=== PATIENT | male | born 1975 | race Caucasian/White ===

== ENCOUNTER 2017-11-20 16:23 | Emergency (ER) | payer MEDICARE, OTHER ==
[~2017-11-20] VITALS: Ht 185.4 cm; Wt 77.0 kg
[~2017-11-20 16:23] MED LIST: IBUP800 PO; PROZ20CA11 PO; ZIPR20 PO
[2017-11-20 16:31] VITALS: BP 132/94; PULSE 120; RESP 17; TEMP 98.3; O2SAT 100
[2017-11-20 20:47] LABS: AUTOMATED NEUTROPHIL # 2.4 TH/MM3 (1.8-7.7); BASOPHIL % 0.5 % (0.0-2.0); EOSINOPHIL % 0.6 % (0.0-4.0); HEMATOCRIT 41.4 % (39.0-51.0); HEMOGLOBIN 14.5 GM/DL (13.0-17.0); LYMPH % 23.8 % (9.0-44.0); LYMPHOCYTE # 0.9 TH/MM3 (1.0-4.8); MEAN CELL VOLUME 85.5 FL (80.0-100.0); MEAN CORPUSCULAR HGB CONC 35.1 % (32.0-36.0); MEAN PLATELET VOLUME 8.5 FL (7.0-11.0); MONO % 9.8 % (0.0-8.0); MONOCYTE # 0.4 TH/MM3 (0-0.9); NEUT % 65.3 % (16.0-70.0); PLATELET COUNT 193 TH/MM3 (150-450); RED BLOOD COUNT 4.84 MIL/MM3 (4.50-5.90); RED CELL DISTRIBUTION WIDTH 14.2 % (11.6-17.2); WHITE BLOOD COUNT 3.7 TH/MM3 (4.0-11.0)
[2017-11-20 20:49] LABS: AMORPHOUS SEDIMENT, URINE RARE; BILIRUBIN, URINE NEG (NEG); BLOOD, URINE NEG (NEG); GLUCOSE,URINE NEG (NEG); HYALINE CAST, URINE 25 /lpf (RARE); KETONE, URINE 150 mg/dL (NEG); MUCUS URINE FEW /lpf (OCC); NITRITE,URINE NEG (NEG); SQUAMOUS EPITHELIAL CELL URINE <1 /hpf (0-5); URINE COLOR YELLOW (YELLW/STRAW); URINE LEUKOCYTE ESTERASE NEG (NEG)
[2017-11-20] MEDS ORDERED: ZYPR20TA PO (21:00)
[2017-11-20] MEDS ORDERED: PROZ20CA11 PO (21:00)
[2017-11-20] MEDS ORDERED: SODIUM CHLOR 0.9% 1000 ML INJ 1,000 ML IV ONE (21:00)
[2017-11-20 21:02] LABS: ALBUMIN 3.6 GM/DL (3.4-5.0); BICARBONATE 17.3 MEQ/L (21.0-32.0); BLOOD UREA NITROGEN 5 MG/DL (7-18); CALCIUM 8.5 MG/DL (8.5-10.1); CHLORIDE 102 MEQ/L (98-107); CREATININE 1.32 MG/DL (0.60-1.30); GLOMERULAR FILTRATION RATE 59 ML/MIN (>89); GLUCOSE,RANDOM 71 MG/DL (74-106); MAGNESIUM 1.8 MG/DL (1.5-2.5); SODIUM (NA) 136 MEQ/L (136-145)
[2017-11-20 21:03] LABS: ACETAMINOPHEN LESS THAN 2.0 MCG/ML (10.0-30.0); ALT (GPT) 19 U/L (12-78); AST (GOT) 20 U/L (15-37)
[2017-11-20 21:06] LABS: ALKALINE PHOSPHATASE 85 U/L (45-117); TOTAL BILIRUBIN ADULT 0.6 MG/DL (0.2-1.0); TOTAL PROTEIN 7.1 GM/DL (6.4-8.2)
--- NOTE | 2017-11-20 21:37 | PD ---
HPI Chief Complaint: Medical Clearance Time Seen by Provider: 20:48 Travel History International Travel<30 days: No Contact w/Intl Traveler<30days: No Traveled to known affect area: No History of Present Illness HPI 42-year-old male patient with history of schizophrenia, [facility], apparently has been on a hunger strike for 3 weeks, not eating, suicidal, states he wants to kill himself. He states that he gets dizzy and has palpitations sometimes, but denies any other issues. He has been [facility] acted, brought in for medical evaluation. Modifying Factors: None Associated Signs & Symptoms: Hunger strike for 3 weeks, not eating and drinking , dizziness and palpitations Risk Factors: Schizophrenic PFSH Past Medical History Schizophrenia: Yes (paranoid) Past Surgical History Oral Surgery: Yes (wisdom teeth) Social History Alcohol Use: No Tobacco Use: No Substance Use: Yes (occasional marijuana) Allergies-Medications (Allergen,Severity, Reaction): Coded Allergies: No Known Allergies (Unverified , 04/02/16) Reported Meds & Prescriptions Reported Meds & Active Scripts Active Reported Prozac (Fluoxetine HCl) 20 Mg Cap 20 Mg PO DAILY Zyprexa (Olanzapine) 20 Mg Tab 20 Mg PO DAILY Review of Systems Except as stated in HPI: all other systems reviewed are Neg Physical Exam Narrative GENERAL: Well-developed middle-age male patient currently in mild distress. Awake and oriented 3. SKIN: Focused skin assessment warm/dry. HEAD: Atraumatic. Normocephalic. EYES: Pupils equal and round. No scleral icterus. No injection or drainage. ENT: No nasal bleeding or discharge. Mucous membranes pink and moist. NECK: Trachea midline. No JVD. CARDIOVASCULAR: Regular rate and rhythm. No murmur appreciated. RESPIRATORY: No accessory muscle use. Clear to auscultation. Breath sounds equal bilaterally. GASTROINTESTINAL: Abdomen soft, non-tender, nondistended. Hepatic and splenic margins not palpable. MUSCULOSKELETAL: No obvious deformities. No clubbing. No cyanosis. No edema. NEUROLOGICAL: Awake and alert. No obvious cranial nerve deficits. Motor grossly within normal limits. Normal speech. PSYCHIATRIC: Appropriate mood and flat affect; insight and judgment poor. Data Data Last Documented VS Vital Signs Date Time Temp Pulse Resp B/P (MAP) Pulse Ox O2 Delivery O2 Flow Rate FiO2 11/20/17 16:31 98.3 120 17 132/94 (107) 100 Orders Orders Electrocardiogram (11/20/17 19:20) Complete Blood Count With Diff (11/20/17 19:20) Comprehensive Metabolic Panel (11/20/17 19:20) Lipase (11/20/17 19:20) Urinalysis - C+S If Indicated (11/20/17 19:20) Magnesium (Mg) (11/20/17 19:20) Drug Screen, Random Urine (11/20/17 19:20) Alcohol (Ethanol) (11/20/17 19:20) Salicylates (Aspirin) (11/20/17 19:20) Tylenol (Acetaminophen) (11/20/17 19:20) Sodium Chlor 0.9% 1000 Ml Inj (Ns 1000 M (11/20/17 21:00) Thyroid Stimulating Hormone (11/20/17 20:54) Psych Screen (11/20/17 20:54) Labs Laboratory Tests Test 11/20/17 20:00 11/20/17 20:30 Urine Color YELLOW Urine Turbidity HAZY Urine pH 6.0 Urine Specific [place] 1.020 Urine Protein 30 mg/dL Urine Glucose (UA) NEG mg/dL Urine Ketones 150 mg/dL Urine Occult Blood NEG Urine Nitrite NEG Urine Bilirubin NEG Urine Urobilinogen 2.0 MG/DL Urine Leukocyte Esterase NEG Urine RBC 1 /hpf Urine WBC 1 /hpf Urine Squamous Epithelial Cells <1 /hpf Urine Amorphous Sediment RARE Urine Hyaline Casts 25 /lpf Urine Mucus FEW /lpf Microscopic Urinalysis Comment CULT NOT INDICATED Urine Opiates Screen NEG Urine Barbiturates Screen NEG Urine Amphetamines Screen NEG Urine Benzodiazepines Screen NEG Urine Cocaine Screen NEG Urine Cannabinoids Screen NEG White Blood Count 3.7 TH/MM3 Red Blood Count 4.84 MIL/MM3 Hemoglobin 14.5 GM/DL Hematocrit 41.4 % Mean Corpuscular Volume 85.5 FL Mean Corpuscular Hemoglobin 30.0 PG Mean Corpuscular Hemoglobin Concent 35.1 % Red Cell Distribution Width 14.2 % Platelet Count 193 TH/MM3 Mean Platelet Volume 8.5 FL Neutrophils (%) (Auto) 65.3 % Lymphocytes (%) (Auto) 23.8 % Monocytes (%) (Auto) 9.8 % Eosinophils (%) (Auto) 0.6 % Basophils (%) (Auto) 0.5 % Neutrophils # (Auto) 2.4 TH/MM3 Lymphocytes # (Auto) 0.9 TH/MM3 Monocytes # (Auto) 0.4 TH/MM3 Eosinophils # (Auto) 0.0 TH/MM3 Basophils # (Auto) 0.0 TH/MM3 CBC Comment DIFF FINAL Differential Comment Salicylates Level 1.8 MG/DL MDM Medical Decision Making Medical Screen Exam Complete: Yes Emergency Medical Condition: Yes Medical Record Reviewed: Yes Interpretation(s) EKG shows NSR, no ST elevation or depression, and no arrhythmias. No significant T-wave inversions. Laboratory Tests Test 11/20/17 20:00 11/20/17 20:30 Urine Turbidity HAZY (CLEAR) Urine Protein 30 mg/dL (NEG-TRACE) Urine Ketones 150 mg/dL (NEG) Urine Mucus FEW /lpf (OCC) White Blood Count 3.7 TH/MM3 (4.0-11.0) Monocytes (%) (Auto) 9.8 % (0.0-8.0) Lymphocytes # (Auto) 0.9 TH/MM3 (1.0-4.8) Blood Urea Nitrogen 5 MG/DL (7-18) Creatinine 1.32 MG/DL (0.60-1.30) Random Glucose 71 MG/DL (74-106) Carbon Dioxide Level 17.3 MEQ/L (21.0-32.0) Anion Gap 17 MEQ/L (5-15) Estimat Glomerular Filtration Rate 59 ML/MIN (>89) Salicylates Level 1.8 MG/DL (2.8-20.0) Acetaminophen Level LESS THAN 2.0 MCG/ML Differential Diagnosis Dehydration versus metabolic issues versus dysrhythmias Narrative Course Lab work shows mild dehydration but is otherwise unremarkable for any significant electrolyte abnormalities. Vital signs are stable in the ER. EKG did not show dysrhythmias. At this point, patient has been given IV fluids in the ER. My plan would be to medically clear for psychiatric evaluation. Diagnosis Primary Impression: Dehydration Additional Impression: Suicidal ideation Disposition: 65 DISC TO PSYCH CARE FACILITY Condition: Stable Rosy Sena MD Nov 20, 2017 21:37
--- NOTE | 2017-11-21 04:43 | EKG ---
Date Performed: 11/20/2017 Time Performed: 20:48:41 PTAGE: 42 years EKG: Sinus rhythm BORDERLINE RIGHT AXIS DEVIATION BORDERLINE ECG NO PREVIOUS TRACING DOCTOR: Atul Nair Interpretating Date/Time 11/21/2017 04:42:37
== END 2017-11-20 22:57 ==
LOC: NEDAMB 16:23 → NEPD 22:57
DX: E86.0 Dehydration (principal); R45.851 Suicidal ideations; F20.0 Paranoid schizophrenia; F12.90 Cannabis use, unspecified, uncomplicated; R00.2 Palpitations
CPT/HCPCS: 80053; 80307; 81001; 83690; 83735; 84443; 85025; 93005; 99284; J7030